=== PATIENT | male | born 1965 | race Caucasian/White ===

== ENCOUNTER 2016-06-18 20:17 | Emergency (ER) | payer OTHER ==
[2016-06-18] MEDS ORDERED: HYDROmorphone HCL 1 MG/ML SYRINGE (J1170) As Ordered ONE (21:18)
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
== END 2016-06-18 22:09 | disposition home or self-care (01) ==
LOC: M ED 20:17
DX: T20.25XA Burn of second degree of scalp [any part], initial encounter (principal); T22.211A Burn of second degree of right forearm, initial encounter; X12.XXXA Contact with other hot fluids, initial encounter; Y92.098 Other place in other non-institutional residence as the place of occurrence of the external cause; Y93.G3 Activity, cooking and baking; Y99.8 Other external cause status; F17.200 Nicotine dependence, unspecified, uncomplicated
CPT/HCPCS: 96374; 99284; J1170

== ENCOUNTER 2017-06-28 22:39 | Emergency (ER) | payer OTHER, SELFPAY ==
[2017-06-29] MEDS: KETOROLAC 60 MG/2 ML VIAL (J1885) IM ×2 (00:21)
[2017-06-29] MEDS: PERCOCET 5MG/325MG TAB PO ×2 (00:21)
[2017-06-29] MEDS: OXYCODONE/APAP 5MG/325MG(BULK FOR ED) 1 TABLET PO ×2 (02:40)
== END 2017-06-29 02:50 | disposition home or self-care (01) ==
LOC: M ED 06-29 02:50
DX: R07.89 Other chest pain (principal); W19.XXXA Unspecified fall, initial encounter; Y92.9 Unspecified place or not applicable; Y93.9 Activity, unspecified
CPT/HCPCS: J1885

== ENCOUNTER → 2018-08-15 | Outpatient (CLI) | payer OTHER ==
[2018-08-15 10:22] LABS: BASO # 0.1 10^3/uL (0.0-0.2); BASO % 1.3 % (0.0-1.0); EOS # 0.2 10^3/uL (0.0-0.50); EOS % 2.5 % (0.0-3.0); HEMATOCRIT 44.1 % (42.0-52.0); HEMOGLOBIN 14.8 g/dl (13.5-17.5); LYMPH # 1.9 10^3/uL (1.5-4.5); LYMPH % 29.6 % (24.0-44.0); MEAN CORPUSCULAR HGB CONC 33.6 g/dl (32.0-36.5); MEAN CORPUSCULAR VOLUME 92.3 fl (80.0-96.0); MONO # 0.7 10^3/uL (0.0-0.8); MONO % 10.3 % (0.0-5.0); NEUTROPHILS # 3.5 10^3/uL (1.8-7.7); NEUTROPHILS % 56.1 % (36.0-66.0); PLATELET COUNT, AUTOMATED 319 10^3/uL (150-450); RED BLOOD COUNT 4.78 10^6/uL (4.30-6.10); WHITE BLOOD COUNT 6.3 10^3/uL (4.0-10.0)
[2018-08-15 10:52] LABS: HEMOGLOBIN A1c 5.6 %
[2018-08-15 10:54] LABS: ALBUMIN 3.9 GM/DL (3.2-5.2); ALT/SGPT 20 U/L (12-78); BILIRUBIN,TOTAL 0.4 MG/DL (0.2-1.0); BLOOD UREA NITROGEN 15 MG/DL (7-18); CARBON DIOXIDE LEVEL 29 MEQ/L (21-32); CHLORIDE LEVEL 103 MEQ/L (98-107); CHOLESTEROL LEVEL 155 MG/DL (<200); CHOLESTEROL RISK RATIO 3.229 (<5); CREATININE FOR GFR 0.76 MG/DL (0.70-1.30); GLOMERULAR FILTRATION RATE > 60.0 (>56); GLUCOSE, FASTING 95 MG/DL (70-100); HDL CHOLESTEROL 48 MG/DL (>40); LDL CHOLESTEROL 91 MG/DL (<100); NON-HDL-C 107 MG/DL; POTASSIUM SERUM 4.3 MEQ/L (3.5-5.1); SODIUM LEVEL 138 MEQ/L (136-145); TOTAL 25(OH) VITAMIN D 14.4 NG/ML (30.0-100.0); TOTAL PROTEIN 6.7 GM/DL (6.4-8.2); TRIGLYCERIDES LEVEL 79 MG/DL (<150)
--- NOTE | 2018-08-15 12:13 | REP ---
Bilateral knee series: Nine views. History: Bilateral knee pain. Comparison left knee radiographs are from April 30 2014. Findings: [place] view of both knees show mild bilateral osteoarthritic spurring at the lateral edge of each patella. On lateral radiograph of the left knee there is mild articular spurring of the upper and lower pole the patella and there is nonarticular spurring at the upper pole at the quadriceps tendon insertion. There is mild medial compartment osteoarthritic spurring on the left as well. There is a ossific body at the posterior aspect of the knee medially branch may be a loose body. This not the normal location of the fabella. On the right there is patella spurring both osteoarthritic and nonarticular at the quadriceps tendon insertion. There is mild medial compartment osteoarthritic spurring in the right knee as well. Impression: Bilateral medial and patellofemoral compartment osteoarthritis. Possible medial loose body noted posteriorly on the left. Electronically Signed by Ender Peraza MD 08/15/2018 12:05 P
== END ==
LOC: M LAB 09:46
PROVIDERS: ATTEND Nurse Practitioner Family
DX: Z13.9 Encounter for screening, unspecified (principal); M25.561 Pain in right knee

== ENCOUNTER 2020-04-24 21:25 | Emergency (ER) | payer OTHER ==
[~2020-04-24] VITALS: Ht 165.1 cm; Wt 55.9 kg
[2020-04-24] MEDS ORDERED: DERMABOND TOPICAL SKIN ADHESIVE TOP ONE (22:15)
--- NOTE | 2020-04-24 22:46 | REPVR ---
PROCEDURE INFORMATION: Exam: CT Cervical Spine Without Contrast Exam date and time: 04/24/2020 10:35 PM Age: 55 years old Clinical indication: Injury or trauma; Fall; Blunt trauma; Additional info: Fall, ETOH TECHNIQUE: Imaging protocol: Computed tomography images of the cervical spine without contrast. Radiation optimization: All CT scans at this facility use at least one of these dose optimization techniques: automated exposure control; mA and/or kV adjustment per patient size (includes targeted exams where dose is matched to clinical indication); or iterative reconstruction. COMPARISON: No relevant prior studies available. FINDINGS: Bones/joints: No acute vertebral fracture/subluxation. Discs/Spinal canal/Neural foramina: C3-C4 small central disc protrusion. C3-C6 small disc bulge and protrusions. At most, mild moderate spinal and moderate foraminal stenosis. Soft tissues: Unremarkable. Lungs: Scarring in the lung apices and bullous changes. IMPRESSION: No acute vertebral fracture/subluxation. Electronically signed by: Heriberto Sneed On 04/24/2020 22:46:38 PM
--- NOTE | 2020-04-24 22:47 | REPVR ---
PROCEDURE INFORMATION: Exam: CT Head Without Contrast Exam date and time: 04/24/2020 10:35 PM Age: 55 years old Clinical indication: Injury or trauma; Fall; Blunt trauma (contusions or hematomas); Additional info: Fall, ETOH TECHNIQUE: Imaging protocol: Computed tomography of the head without contrast. Radiation optimization: All CT scans at this facility use at least one of these dose optimization techniques: automated exposure control; mA and/or kV adjustment per patient size (includes targeted exams where dose is matched to clinical indication); or iterative reconstruction. COMPARISON: No relevant prior studies available. FINDINGS: Brain: Normal. No hemorrhage. Unremarkable white matter. No mass effect. Cerebral ventricles: No ventriculomegaly. Bones/joints: Unremarkable. No acute fracture. Paranasal sinuses: Visualized sinuses are unremarkable. No fluid levels. Mastoid air cells: Visualized mastoid air cells are well aerated. Soft tissues: Unremarkable. IMPRESSION: No acute intracranial abnormality. Electronically signed by: Heriberto Sneed On 04/24/2020 22:47:36 PM
[2020-04-25 00:26] VITALS: BP 103/56
== END 2020-04-25 00:30 | disposition home or self-care (01) ==
LOC: M ED 21:25
DX: S01.81XA Laceration without foreign body of other part of head, initial encounter (principal); S01.512A Laceration without foreign body of oral cavity, initial encounter; W01.10XA Fall on same level from slipping, tripping and stumbling with subsequent striking against unspecified object, initial encounter; Y92.019 Unspecified place in single-family (private) house as the place of occurrence of the external cause; Y93.9 Activity, unspecified; Y99.9 Unspecified external cause status; F10.929 Alcohol use, unspecified with intoxication, unspecified; F17.200 Nicotine dependence, unspecified, uncomplicated

== ENCOUNTER → 2023-04-29 | Outpatient (CLI) | payer OTHER, SELFPAY | LOC: M SOG 11:12 | PROVIDERS: ATTEND Physician Assistant | DX: M25.561 Pain in right knee (principal) ==